=== PATIENT | female | born 1930 | race Caucasian/White ===

== ENCOUNTER → 2017-10-14 | Outpatient (CLI) | payer MEDICARE ==
[~2017-10-14] MED LIST: BENA40TA3 PO; CALC300T5 PO; CHOL2000 PO; OXYC-302 PO; SIMV40TA3 PO
== END | disposition home or self-care (01) ==
LOC: CFH 08:48
PROVIDERS: ATTEND Internal Medicine Cardiovascular Disease
DX: I08.0 Rheumatic disorders of both mitral and aortic valves (principal); I10 Essential (primary) hypertension; E78.5 Hyperlipidemia, unspecified
CPT/HCPCS: 93306